=== PATIENT | female | born 1965 | race African-American/Black ===

== ENCOUNTER 2017-02-13 12:57 | Emergency (ER) | payer BC, OTHER ==
[~2017-02-13 12:57] MED LIST: ATEN25 PO; METHIMAZOLE10 MG OR; T PO
[2017-02-13 13:05] LABS: BASOPHILS 0.1 %; BASOPHILS ABSOLUTE 0.01 10/3/uL (0.0-0.16); EOSINOPHILS 0.8 %; EOSINOPHILS ABSOLUTE 0.06 10/3/uL (0.0-0.53); HEMATOCRIT 37.3 % (36.0-48.0); HEMOGLOBIN 13.7 g/dL (12.0-16.0); IMMATURE GRANULOCYTES 0.3 %; IMMATURE GRANULOCYTES ABSOLUTE 0.02 10/3/uL (0.0-0.11); LYMPHOCYTES 16.1 %; LYMPHOCYTES ABSOLUTE 1.25 10/3/uL (0.67-4.30); MEAN CORPUS HGB CONC 36.7 g/dL (32.0-36.0); MEAN CORPUSCULAR HEMOGLOB 33.7 pg (26.0-34.0); MEAN CORPUSCULAR VOLUME 91.9 fL (80-100); MEAN PLATELET VOLUME 10.6 fL (9.2-13.0); MONOCYTES 12.6 %; MONOCYTES ABSOLUTE 0.98 10/3/uL (0.21-1.20); NEUTROPHILS 70.1 %; NEUTROPHILS ABSOLUTE 5.45 10/3/uL (2.02-8.40); PLATELET COUNT 156 10/3/uL (150-400); RBC DISTRIBUTION WIDTH 13.3 % (12.0-16.0); RED CELL COUNT 4.06 10/6/uL (4.0-5.6)
[2017-02-13 13:07] LABS: MANUAL DIFF NO %; WHITE BLOOD CELLS 7.8 10/3/uL (4.5-10.5)
[2017-02-13 13:12] LABS: PARTIAL THROMBO TIME 29.4 SEC (22.5-37.2); PROTIME (NOT ORD) 13.5 SEC (12.0-14.5)
[2017-02-13 13:16] LABS: INFLUENZA A SCREEN NEGATIVE (NEGATIVE); INFLUENZA B SCREEN NEGATIVE (NEGATIVE)
[2017-02-13 13:28] LABS: BUN (BLOOD UREA NITROGEN) 9 MG/DL (6-23); CALCIUM, SERUM 9.2 MG/DL (8.5-10.4); CHEST PAIN PROFILE TAT 0 Hrs 27 Mins; CHLORIDE, SERUM 101 MMOL/L (96-112); CO2 (CARBON DIOXIDE) 29 MMOL/L (24-34); CREATININE 0.95 MG/DL (0.55-1.02); GFR AFRICAN AMERICAN 82 ML/MIN (>=60); GFR NON AFRICAN AMERICAN 70 ML/MIN (>=60); GLUCOSE, SERUM 97 MG/DL (60-99); POTASSIUM, SERUM 3.6 MMOL/L (3.5-5.3); SODIUM, SERUM 137 MMOL/L (135-148); TROPONIN I <0.02 NG/ML (<0.05)
== END 2017-02-13 14:00 | disposition home or self-care (01) ==
LOC: ER 12:57
PROVIDERS: Nurse Practitioner
DX: J06.9 Acute upper respiratory infection, unspecified (principal); I10 Essential (primary) hypertension; Z88.5 Allergy status to narcotic agent; Z88.8 Allergy status to other drugs, medicaments and biological substances; Z79.899 Other long term (current) drug therapy
CPT/HCPCS: 71020; 80048; 83735; 84484; 85025; 85610; 85730; 87804; 93005; 96372; 99284